=== PATIENT | male | born 1965 | race Caucasian/White ===

== ENCOUNTER 2023-11-01 19:57 | Emergency (ER) | payer BC, SELFPAY ==
[~2023-11-01 19:57] MED LIST: Iopamidol 300 61% 100 ML VIAL FS ONE
[2023-11-01] MEDS ORDERED: Acetaminophen 500 MG TAB ONE (20:27)
[2023-11-01] MEDS ORDERED: Ibuprofen 800 MG TAB ONE (20:27)
[2023-11-01 21:16] LABS: Influenza A by NAA Not Detected (NotDetected); Influenza B by NAA Not Detected (NotDetected); SARS-CoV-2 NAA Rapid Test DETECTED (NotDetected)
[2023-11-01] MEDS ORDERED: diphenhydrAMINE 50 MG/ML VIAL ONE (21:33)
[2023-11-01] MEDS ORDERED: Ondansetron PF 4 MG/2 ML Vial ONE (21:34)
[2023-11-01 22:07] LABS: #Monocytes 0.6 10x3/uL (0.0-1.1); #Neutrophils 9.1 10x3/uL (1.5-8.4); %Basophils 0.1 % (0.0-2.0); %Lymphocytes 2.2 % (18.0-47.0); %Neutrophils 91.4 % (40.0-75.0); Hematocrit 39.1 % (38.8-50.0); Mean Corpuscular HGB CONC 35.8 g/dL (32.0-36.0); Mean Corpuscular Hemoglobin 31.6 pg (27.0-33.0); Mean Corpuscular Volume 88.3 fl (81.2-95.1); Mean Platelet Volume 11.4 fl (7.4-10.4); Platelet Count 175 10x3/uL (150-450); RBC Distribution Width 12.7 % (11.5-14.5); Red Blood Cell (RBC) Count 4.43 10x6/uL (4.32-5.72)
[2023-11-01 22:21] LABS: ALT (SGPT) 33 U/L (8-55); AST (SGOT) 19 U/L (5-34); Albumin 4.1 g/dL (3.5-5.0); Alkaline Phosphatase 93 U/L (40-110); Anion Gap 16 mmol/L (10-20); BUN (Urea Nitrogen) 13 mg/dL (8.4-25.7); Bilirubin, Total 0.8 mg/dL (0.2-1.2); Calc. Creatinine Clearance 0 mL/min (70-130); Calcium 9.1 mg/dL (7.8-10.44); Carbon Dioxide 22 mmol/L (22-29); Chloride 100 mmol/L (98-107); Estimated GFR 96; Globulin 1.8 g/dL (2.4-3.5); Glucose 325 mg/dL (70-105); Lipase 38 U/L (8-78); Potassium 4.1 mmol/L (3.5-5.1); Protein, Total 5.9 g/dL (6.0-8.3); Sodium 134 mmol/L (136-145)
== END 2023-11-01 23:25 | disposition home or self-care (01) ==
LOC: CSHERS 19:57
DX: U07.1 COVID-19 (principal); R09.02 Hypoxemia; E10.65 Type 1 diabetes mellitus with hyperglycemia; L50.9 Urticaria, unspecified; I10 Essential (primary) hypertension; F10.20 Alcohol dependence, uncomplicated; Z79.899 Other long term (current) drug therapy; Z79.4 Long term (current) use of insulin
CPT/HCPCS: 71045; 74177; 80053; 83605; 83690; 85025; 94760; 96374; 96375; J1200; J2405; Q9967